=== PATIENT | male | born 1960 | race Caucasian/White ===

== ENCOUNTER 2018-09-15 22:48 | Emergency (ER) | payer OTHER ==
[~2018-09-15] VITALS: Ht 152.4 cm; Wt 39.0 kg
[2018-09-15] MEDS: MORPHINE SULFATE 4 MG/1 ML DISP.SYRIN IV ONE (23:13)
[2018-09-15] MEDS: ONDANSETRON IV *ER 4 MG/2 ML VIAL IV ONE (23:13)
[2018-09-15] MEDS ORDERED: ONDANSETRON 4 MG/2 ML VIAL ONE (23:15)
[2018-09-15] MEDS ORDERED: MORPHINE SULFATE 4 MG/1 ML DISP.SYRIN ONE (23:15)
[2018-09-16] MEDS: KETOROLAC TROMETHAMINE 15 MG INJ IVP ONE (00:51)
--- NOTE | 2018-09-16 01:22 | NUR ---
Patient discharged to home in stable conditon. Written and verbal after care instructions given. Patient verbalizes understanding of instructions. Pt left ER via taxi in stable condition. Pt is AAox4. Pt states lives w girlfriend who will assist him once he arrives home. No acute distress noted. Vital signs stable.
[2018-09-16 01:25] VITALS: BP 106/69
== END 2018-09-16 01:26 | disposition home or self-care (01) ==
LOC: ER 22:50
DX: S42.202A Unspecified fracture of upper end of left humerus, initial encounter for closed fracture (principal); F17.200 Nicotine dependence, unspecified, uncomplicated; Z88.5 Allergy status to narcotic agent; W01.198A Fall on same level from slipping, tripping and stumbling with subsequent striking against other object, initial encounter; Y93.89 Activity, other specified; Y92.89 Other specified places as the place of occurrence of the external cause; Y99.8 Other external cause status
CPT/HCPCS: 29105; 73030; 96374; 96375 ×2; 99283; J1885; J2270; J2405; A4663

== ENCOUNTER 2018-09-16 10:58 | Emergency (ER) | payer OTHER ==
[~2018-09-16] VITALS: Ht 149.9 cm; Wt 39.0 kg
--- NOTE | 2018-09-16 11:04 | NUR ---
NADER REINA AT BEDSIDE FOR MSE.
[2018-09-16] MEDS ORDERED: OXYCODONE/APAP 5-325 MG TABLET ONE (11:13)
[2018-09-16] MEDS: OXYCODONE/APAP 5-325 MG TABLET PO ONE (11:14)
[2018-09-16 11:17] VITALS: BP 131/66
--- NOTE | 2018-09-16 11:17 | NUR ---
Patient discharged to home in stable conditon. Written and verbal after care instructions given. Patient verbalizes understanding of instructions. ALL BELONGINGS W/ PT. PT SELF-AMBULATED W/O DIFFICULTY. PT WILL BE DRIVEN HOME BY FAMILY IN PRIVATE VEHICLE.
== END 2018-09-16 11:18 | disposition home or self-care (01) ==
LOC: ER 10:58
DX: S42.202A Unspecified fracture of upper end of left humerus, initial encounter for closed fracture (principal); F17.200 Nicotine dependence, unspecified, uncomplicated; Z88.5 Allergy status to narcotic agent; X58.XXXA Exposure to other specified factors, initial encounter; Y93.89 Activity, other specified; Y92.89 Other specified places as the place of occurrence of the external cause; Y99.8 Other external cause status
CPT/HCPCS: A4663